=== PATIENT | female | born 1955 | race Caucasian/White ===

== ENCOUNTER 2025-08-12 06:49 | Observation (INO) ==
--- NOTE | 2025-08-10 08:40 | Anesthesiology Consultation ---
Date of Service August 10, 2025 Assessment & Plan (1) Encounter for pre-operative examination: - Infectious disease screening: Per assessment on 08/04/25- No known recent infectious disease contacts or current infectious disease symptoms. - Outpatient joint assessment: Pt currently scheduled for inpatient pathway. If surgeon requests review for outpatient joint pathway, patient is an acceptable candidate for outpatient joint program from anesthesia standpoint pending surgeon's office assessment that patient is motivated, has good support and completes [facility] preop requirements. - PCP addendum 06/21/25: "Somewhat abnormal EKG with some bradycardia with first- degree block.. surgeon requesting clearance prior to surgery.. Would like to be referred to Dr. Whittaker.. Referral: Cardiology.. Reason: abn EKG: Needs clearance for upcoming surgical procedure.." - Cardiology visit 07/27/25: "Patient is a 69-year-old female with no known cardiovascular history who presents to the clinic for preoperative cardiovascular evaluation prior to knee replacement. She is currently stable and asymptomatic from a cardiovascular standpoint with no anginal symptoms occurring at >4 METS of activity. She has no evidence of CHF or significant valvular abnormality. Her preop ECG was abnormal with poor R wave progression. Will therefore arrange an echocardiogram to further evaluate LV wall motion and systolic function prior to elective surgery. Pending the results of the echo, she is at an acceptable risk to proceed with upcoming surgery from a cardiovascular standpoint. Follow-up as needed, pending echo results." > Echo performed 08/04/25; unremarkable findings. - Received secure tiger message from Cristina Phillips ([facility] case supervisor) 08/10/25 that patient wishes to have procedure done under General anesthesia if possible; ultimate anesthesia type at surgeon/anesthesiologist discretion DOS. Chart Review Chart Review: Acceptable Risk for Surgery and Patient NOT seen in Pre Admission Testing History Surgery Operation Date: 08/12/25 08:50 Proposed Procedures p Left Total Knee Arthroplasty - Fredrick Millard MD Height/Weight Height: 5 ft 2 in Weight: 77.111 kg Allergies Allergy/AdvReac Type Severity Reaction Status Date / Time Penicillins Allergy Severe Hives Verified 08/04/25 08:47 Sulfa (Sulfonamide Allergy Severe Nausea Verified 08/04/25 08:47 Antibiotics) codeine AdvReac Intermediate "make me Verified 08/04/25 08:47 loopy" Medications Home Medications Medication Instructions Recorded Confirmed Last Taken carboxymethylcellulose sodium 0.5 1 drp ophthalmic (eye) BID 04/23/24 08/04/25 Unknown % eye drops (Refresh Tears) levothyroxine 88 mcg tablet 88 mcg PO QAM 04/23/24 08/04/25 Unknown (Synthroid) lisinopril 5 mg tablet 5 mg PO QPM 04/23/24 08/04/25 Unknown cholecalciferol (vitamin D3) 125 125 mcg PO 3XWK 07/27/25 08/04/25 Unknown mcg (5,000 unit) capsule Nurtrafull Serum 1 applic topical DAILY 08/04/25 08/04/25 Unknown collagen (bovine) 100 % topical 1 applic topical DAILY 08/04/25 08/04/25 Unknown powder ibuprofen 200 mg tablet 200 - 600 mg PO Q6H PRN Pain 08/04/25 08/04/25 Unknown Past Medical History Medical History Dry eyes History of basal cell carcinoma of skin on nose Hypertension Hypothyroidism Migraine Osteoarthritis Past Family History Family History Other No family history of adverse response to anesthesia Sjogren's disease Past Surgical History Surgical History History of basal cell carcinoma excision removed in office History of cataract surgery bilateral History of section x2 History of colonoscopy History of laser refractive surgery lasik bilaterally History of partial hysterectomy S/P cholecystectomy S/P tubal ligation Social History Smoking Status: Never smoker Do You Dip or Chew Tobacco: No Hx Alcohol Use: Yes alcohol intake frequency: a few times a month Hx Substance Use: No substance use type: does not use Lab Results Anesthesia Preop Results Results Anesthesia Widget: WBC 5.00 K/ul (4.8-10.8) 08/01/25 Hgb 12.6 g/dl (12.0-16.0) 08/01/25 Hct 38.7 % (37.0-47.0) 08/01/25 Plt 304 K/uL (130-400) 08/01/25 Na 139 mmol/L (136-145) 08/01/25 K 4.6 mmol/L (3.5-5.1) 08/01/25 Cl 105 mmol/L (98-107) 08/01/25 CO2 29 mmol/L (21-32) 08/01/25 BUN 20 mg/dl (6-23) 08/01/25 Creat 0.88 mg/dl (0.6-1.2) 08/01/25 Glucose Level 100 mg/dl (70-99(Fasting)) H 08/01/25 PT 10.1 Seconds (9.0-12.0) 08/01/25 PTT 27 Seconds (21-31) 08/01/25 INR 0.9 (0.9-1.1) 08/01/25 Blood Type O Positive 08/01/25 Antibody Screen NEGATIVE 08/01/25 Testing Electrocardiogram Date: 08/01/25 SB with first degree AVB at 55bpm. Low voltage QRS. Chest X-Ray Date: 08/01/25 Findings: + NAD Echocardiogram Date: 08/04/25 "Essentially a normal study" EF 55-60%. Grade I DD. Mild cLVH. No RWMA. No significant valvular disease.
[~2025-08-12 06:49] MED LIST: BUPIVACAINE 0.5 % 5 MG/1 ML PF 10ML VIAL ONE; ROPIVACAINE 0.5% 5 MG/ML 30 ML VIAL ONE
--- NOTE | 2025-08-12 06:52 | History & Physical Bridge Note ---
Date of Service August 12, 2025 History & Physical Bridge Note I have examined the patient, reviewed the History & Physical and in the interval since the performance of the History & Physical I have noted the following changes of clinical significance: no changes noted
[2025-08-12] MEDS: ACETAMINOPHEN 500 MG TAB PO SCH ×2 (07:10→13:30)
[2025-08-12] MEDS: LR 500ML BOLUS, THEN 15ML/HR IV SCH (07:10)
[2025-08-12] MEDS: CeleBREX 200 MG CAP PO SCH (07:10)
[2025-08-12] MEDS: METOCLOPRAMIDE HCL 10 MG TABLET PO SCH (07:11)
[2025-08-12] MEDS: LR 60ML/HR IV SCH (07:11)
[2025-08-12] MEDS: dexAMETHasone**PF** 10 MG/ML VIAL IV SCH (07:11)
[2025-08-12] MEDS: FAMOTIDINE 20 MG TAB PO SCH (07:11)
[2025-08-12] MEDS ORDERED: ONDANSETRON INJ 2 MG/ML 2 ML VIAL ONE ×2 (07:20→10:49)
[2025-08-12] MEDS ORDERED: DEXAMETHASONE SOD INJ 4 MG/ML VIAL ONE ×2 (07:20→10:49)
[2025-08-12] MEDS ORDERED: PROPOFOL IV EMULSION 10 MG/ML 20 ML VIAL IV ONE (07:20)
[2025-08-12] MEDS ORDERED: KETAMINE HCL 10MG/ML SYR ONE (07:21)
[2025-08-12] MEDS ORDERED: MIDAZOLAM HCL 1 MG/ML 2ML VIAL ONE (07:24)
[2025-08-12] MEDS ORDERED: ATROPINE SULFATE 0.1 MG/ML 10ML SYR IV PRN (08:12)
[2025-08-12] MEDS ORDERED: PROMETHAZINE HCL 6.25 MG in SODIUM CHLORIDE 0.9% 50 ML IV PRN (08:12)
[2025-08-12] MEDS ORDERED: LIDOCAINE 2% 2 ML VIAL/AMP(20MG/ML) INFIL ONE (08:47)
[2025-08-12] MEDS ORDERED: ROCURONIUM BROMIDE 10 MG/ML 5 ML VIAL IV ONE (08:47)
[2025-08-12] MEDS ORDERED: PHENYLEPHRINE HCL 10 MG/ML VIAL ONE (09:43)
[2025-08-12] MEDS ORDERED: HYDROmorphone INJ 2 MG/ML SYR/VIAL ONE (09:54)
[2025-08-12] MEDS: ROPIV 0.5% 246mg, Ketorolac 30mg, EPINEPHrine 0.5mg in NSS INFIL SCH (10:02)
[2025-08-12] MEDS: ORTHO JOINT ANESTHETIC ONE (10:02)
[2025-08-12] MEDS ORDERED: SUGAMMADEX SODIUM 200 MG/2 ML VIAL IV ONE (10:50)
--- NOTE | 2025-08-12 11:24 | Operative Report ---
PG Post Operative Report Pre & Post Diagnosis Operation Date: 08/12/25 08:50 Pre-Op Diagnosis: Left Knee Degenerative Joint Disease Post-Op Diagnosis: Left Knee Degenerative Joint Disease I identified the patient and participated in the time-out.: Yes Procedure Operation Date: 08/12/25 08:50 Actual Procedures p Left Total Knee Arthroplasty(Left) - Fredrick Millard MD Surgeon Fredrick Millard MD [employer] Brian To PA-C Estimated Blood Loss 50 Findings Consistent with Post-Op Diagnosis Operative findings were advanced left knee medial compartment DJD. She had extensive grade 4 brif-lo-wmuf disease and eburnated medial femoral condyle and medial tibial plateau. Moderate to large knee joint effusion. Specimens Left knee sent for pathology. Anesthesia Type General Complications none Disposition Accompanied Patient To Recovery: No Indications Patient is a 69-year-old female whose had a history of bilateral knee pain discomfort which gradually got worse over time. She been through some conservative care but was not very successful. X-rays and symptoms gradually got continued to progress pretty significantly over the past 6 months. She elected proceed with total knee arthroplasty on the left side. Description of Procedure Operative implants consist of: 1 Biomet Vanguard size 62.5 left posterior stabilized femoral component. 2. Biomet size 67 tibial tray. 3. 10 mm posterior stabilized polyethylene insert. 4. 31 x 8 all poly patella. The patient was taken the op room, identified, placed on the operative table in the supine position. All contact areas were appropriately padded. IV antibiotics were provided by the anesthesia team. A general anesthetic was implemented. A Marin catheter was placed in sterile fashion. A left phytate was then placed and the left lower extremity was then prepped and draped in usual sterile fashion. The left leg was elevated and exsanguinated with use of an Esmarch and tourniquet placed at 300 mmHg. An anterior approach left knee was then performed to a longitudinal incision centered over the patella. Sharp dissection was Through subcutaneous tissue down the extensor mechanism. A medial parapatellar arthrotomy incision was made. Some subperiosteal dissection was carried out medially. The fat pad was resected from his patella tendon. Lateral patellofemoral ligament was released. Patella subluxated laterally and knee was flexed. The osteophytes taken off distal femur. The ACL and PCL were then released from the distal femur and the tibia subluxated anteriorly. The external tibial alignment jig was then placed on the anterior face of the tibia and adjusted 14 mm medially. The proximal tibial cut was made remove about 2 mm of bone from the medial side. Some osteophytes were taken off medially. The tibia sized to a size 67. We did downsize is a little bit to improve the external rotation of the component. Attention drawn the femur. The distal femur was entered with a sharp drill. Intramedullary canal was suction. A left 5 degree valgus cutting guide was placed. Distal femoral cutting block was pinned in place. Distal femoral cut was made take an additional 3 mm of bone off distal femur. The femur was then sized to a size 62.5. The AP cutting block was pinned parallel to the epicondylar axis which was 4 degrees of external rotation. The anterior cut, anterior chamfer, posterior cut, posterior chamfer cuts were made. The box cutting guide was placed and adjusted slightly laterally. The box cut was made. The knee was flexed. The remnants of the medial and lateral menisci were excised. The osteophytes taken off the posterior aspect of femur. A trial femoral component was placed. The tibial tray was pinned in Vani external rotation and the drill and stem punch used. Defect from proximal tibia for the tibial tray. Knee was then trialed and the 10 mm insert fit most appropriately. Attention drawn to the patella. The patella was cleaned of all soft tissue. Patella thickness measured 22 mm in thickness was cut down to 13. Was sized to a size 31 patella. The lug holes were drilled for the 31 patella. Lateral osteophyte was removed. The patella button was placed. Knee was taken through range of motion patella tracked nicely with no thumbs test. Attention drawn to placement permanent components. All trial components were removed. Bone plug was placed into this femur limit blood loss. A double batch Palacos G cement was mixed. A Biomet Vanguard size 62.5 left posterior stabilized femoral component, size 67 tibial tray, 10 mm Po stabilized polyethylene insert, and a 31 x 8 all poly patella then cemented in place. The knee was brought out into full extension till cement hardened. Final cement check was then performed. The pericapsular tissues were injected with total of 100 cc of Ortho mix. Patient did receive 1 g tranexamic acid. The tourniquet was then let down for final tourniquet time of 55 minutes. H emostasis assured use electrocautery. Extensor Meclomen closed with combination of 1 PDS suture #1 Vicryl suture in a [id number] fashion. Extensor Meclomen checked found be intact the subcutaneous tissue then closed with 2 Dexon suture in a buried interrupted fashion skin was closed skin jessica. Leg was then cleaned and dried and a sterile dressing with Xeroform, 4 fours, sterile cast padding, Piero bandage were applied. Patient was then brought out of general anesthesia and transferred to the recovery room in stable condition. Patient tolerated procedure well and there were no complications. Brian To, my physician assistant center director, was present for the entire procedure. His assistance was required for proper patient positioning, prepping and draping, surgical exposure, retraction, perform the technical details of the operation, placement of the implants, closure of the incision site, placement of postoperative sterile bandage. I attest to the content of the Intraoperative Record and any orders documented therein. Any exceptions are noted below.
--- NOTE | 2025-08-12 11:34 | XRay Report ---
XR knee LT 1 or 2V routine CLINICAL HISTORY: Surgical Post Op COMPARISON: None FINDINGS: Left knee prosthesis shows no hardware complication. There is expected soft tissue gas. Sk in jessica are present. IMPRESSION: Unremarkable postoperative exam. ACT 112: Negative or not required by law. Electronically signed by: Srinivas Ford M.D. 08/12/2025 11:33 AM
[2025-08-12] MEDS: HYDROmorphone INJ 2 MG/ML SYR/VIAL IV PRN (11:49)
[2025-08-12] MEDS ORDERED: MAGNESIUM HYDROXIDE SUSP 30 ML UDC PO PRN (13:15)
[2025-08-12] MEDS ORDERED: METOCLOPRAMIDE HCL INJ 5 MG/ML 2 ML VIAL IV PRN (13:15)
[2025-08-12] MEDS ORDERED: NALOXONE HCL 0.4 MG/1 ML VIAL/CARP IV PRN (13:15)
[2025-08-12] MEDS ORDERED: ALUMINUM/MAGNESIUM SUSP 30 ML UDC PO PRN (13:15)
[2025-08-12] MEDS: SODIUM CHLORIDE 0.9% 1,000 ML IV SCH (13:30)
[2025-08-12] MEDS: KETOROLAC TROMETHAMINE 15 MG/ML VIAL IV SCH (13:30)
[2025-08-12] MEDS: CHOLECALCIFEROL 125 MCG (5,000 UNITS) TAB PO SCH (14:41)
--- NOTE | 2025-08-12 14:50 | Anesthesiology Progress Note ---
Date of Service August 12, 2025 Anesthesia Post Procedure Vital Signs Vital Signs: Temp Pulse Pulse Resp BP Pulse Ox O2 Del Method 08/12/25 13:45 36.4 C L 70 14 121/71 95 Room Air 08/12/25 13:15 36.3 C L 72 14 124/73 98 Room Air 08/12/25 12:45 36.5 C 78 12 135/62 92 High Flow Nasal Cannula 08/12/25 12:30 80 20 132/70 94 High Flow Nasal Cannula 08/12/25 12:15 36.5 C 79 13 130/72 95 High Flow Nasal Cannula 08/12/25 12:00 83 12 133/73 92 High Flow Nasal Cannula 08/12/25 11:50 79 12 143/71 H 94 High Flow Nasal Cannula 08/12/25 11:40 80 17 138/70 97 High Flow Nasal Cannula 08/12/25 11:30 82 15 143/73 H 94 High Flow Nasal Cannula 08/12/25 11:20 36.1 C L 88 16 147/74 H 94 High Flow Nasal Cannula 08/12/25 07:37 36.5 C 65 16 146/77 H 98 Room Air O2 Flow Rate 08/12/25 13:45 08/12/25 13:15 08/12/25 12:45 2 08/12/25 12:30 2 08/12/25 12:15 2 08/12/25 12:00 2 08/12/25 11:50 2 08/12/25 11:40 2 08/12/25 11:30 4 08/12/25 11:20 4 08/12/25 07:37 Pain Intensity Left Knee: Pain Intensity: 4 Transfer of Care Handoff Completed per policy Notes Mental Status: alert / awake / arousable and participated in evaluation Nausea / Vomiting: adequately controlled Pain: adequately controlled Airway Patency, RR, SpO2: stable & adequate BP & HR: stable & adequate Hydration State: stable & adequate Anesthetic Complications: no major complications apparent and Pt Satisfied with anesthetic care
[2025-08-12] MEDS: ASCORBIC ACID 500 MG TAB PO SCH (16:17)
[2025-08-12] MEDS: TRANEXAMIC ACID / 0.7% NACL 1,000 MG/100 ML BAG IV SCH (18:01)
[2025-08-12] MEDS: HYDROmorphone INJ 0.5 MG/0.5 ML SYR IV PRN (18:15)
[2025-08-12] MEDS: ONDANSETRON INJ 2 MG/ML 2 ML VIAL IV PRN (18:17)
[2025-08-12] MEDS ORDERED: SENNA 8.6 MG TAB PO SCH (21:00)
[2025-08-12] MEDS: ASPIRIN 81 MG ECTAB PO SCH (21:32)
[2025-08-12] MEDS: DOCUSATE SODIUM 100 MG CAP PO SCH (21:32)
[2025-08-12] MEDS: SENNA 8.6 MG TAB PO SCH (21:33)
[2025-08-12] MEDS: ARTIFICIAL TEARS OP SCH (22:25)
[2025-08-13 03:56] VITALS: TEMP 98.2
[2025-08-13] MEDS: LEVOTHYROXINE SODIUM 88 MCG TABLET PO SCH (05:37)
--- NOTE | 2025-08-13 06:22 | Orthopedic Progress Note ---
Date of Service August 13, 2025 Assessment & Plan (1) Status post left knee replacement: Overall she is doing fairly well. She is not having much pain in the left knee. She will be seen by physical therapy today for ambulation and range of motion exercises. She is on aspirin for DVT prophylaxis. She can be discharged to home later today. She will follow-up orthopedics in 2 weeks. Yudi Patterson was seen and examined at bedside this morning. Overall she is doing fairly well. She is not having much pain in the left knee. She has been up and ambulating to the bathroom. She has no complaints.. Review of Systems All systems reviewed & are unremarkable except as noted in HPI & below. Physical Exam On physical exam of the left knee, the dressing is clean and dry. Her leg is out in full extension. She has active dorsiflexion and plantarflexion of her left ankle.. Results & Data Results & Data Laboratory Results . Diagnostic Findings Postoperative x-rays of the left knee show the prosthesis to be in anatomic alignment without any evidence of fracture complication, or loosening.. PG Care Time/CCT Total # of Minutes Spent Total Time Spent with Patient: Total time spent is greater than 50% in coordination of care (as documented) at patient's floor/unit and/or counseling patient: Coding Level of Care Code 95976 Post Operative Follow-Up Diagnoses Status post left knee replacement Z96.652
[2025-08-13 07:23] LABS: Hematocrit (blood only) 29.3 % (37.0-47.0); Hemoglobin 9.5 g/dl (12.0-16.0); Mean Corpuscular Hemoglobin 29.4 pg (25.0-34.0); Mean Corpuscular Volume 90.7 fL (80.0-100.0); Platelet Count 214 K/uL (130-400); RDW Standard Deviation 41.1 fL (36.4-46.3); Red Blood Count 3.23 M/uL (4.20-5.40); White Blood Count 13.75 K/ul (4.8-10.8)
[2025-08-13] MEDS: dexAMETHasone 10 MG in SYRINGE 0 ML IV SCH (07:29)
[2025-08-13] MEDS: MULTIVITAMIN TAB PO SCH (07:30)
[2025-08-13 07:42] LABS: Anion Gap 3.0 (3-11); Blood Urea Nitrogen 22.0 mg/dl (6-23); Calcium 8.5 mg/dl (8.6-10.3); Carbon Dioxide 25.0 mmol/L (21-32); Chloride 107.0 mmol/L (98-107); Creatinine Clr Calc Pharmacy 64.8 ml/min; Glucose 119.0 mg/dl (70-99(Fasting)); Potassium 4.4 mmol/L (3.5-5.1); Sodium 135.0 mmol/L (136-145)
[2025-08-13 07:48] VITALS: BP 101/60; PULSE 63; RESP 18; O2SAT 96
[2025-08-13] MEDS ORDERED: [UNRECOGNIZED DRUG - OTHER] TOP SCH (09:00)
[2025-08-13] MEDS ORDERED: COLLAGEN 100% TOP SCH (09:00)
== END 2025-08-13 11:14 | disposition home health service (06) ==
LOC: 3W 06:49 → ASU 06:49